=== PATIENT | male | born 1995 ===

== ENCOUNTER 2018-06-08 21:04 | Emergency (ER) | payer SELFPAY ==
--- NOTE | 2018-06-08 21:36 | C.PDOC ---
History Of Present Illness 22 year old male presents to the ED c/o dysuria and suprapubic pain for the past 2 days. Patient denies fever, chills, nausea, vomit, diarrhea, back pain, other complaints. Time Seen by Provider: 06/08/18 21:21 Chief Complaint (Nursing): Male Genitourinary History Per: Patient History/Exam Limitations: no limitations Onset/Duration Of Symptoms: Days (2) Current Symptoms Are (Timing): Still Present Quality Of Discomfort: "Pain" Associated Symptoms: Urinary Symptoms Recent travel outside of the [place]: No Additional History Per: Patient Past Medical History Reviewed: Historical Data, Nursing Documentation, Vital Signs Vital Signs: Last Vital Signs Temp 98.1 F 06/08/18 21:23 Pulse 95 H 06/08/18 21:23 Resp 18 06/08/18 21:23 BP 141/78 06/08/18 21:23 Pulse Ox 99 06/08/18 21:36 - Medical History PMH: No Chronic Diseases Surgical History: No Surg Hx Family History: States: Unknown Family Hx - Social History Hx Alcohol Use: Yes Hx Substance Use: No - Immunization History Hx Tetanus Toxoid Vaccination: No Hx Influenza Vaccination: No Hx Pneumococcal Vaccination: No Review Of Systems Except As Marked, All Systems Reviewed And Found Negative. Gastrointestinal: Positive for: Abdominal Pain Genitourinary: Positive for: Dysuria Physical Exam - Physical Exam Appears: Non-toxic, No Acute Distress Skin: Normal Color, Warm, Dry Head: Atraumatic, Normacephalic Eye(s): bilateral: Normal Inspection Oral Mucosa: Moist Neck: Normal ROM, Supple Chest: Symmetrical Cardiovascular: Rhythm Regular Respiratory: Normal Breath Sounds, No Rales, No Rhonchi, No Wheezing Gastrointestinal/Abdominal: Soft, Tenderness (suprapubic ), No Guarding, No Rebound Back: No CVA Tenderness Extremity: Normal ROM, No Tenderness, No Swelling Neurological/Psych: Oriented x3, Normal Speech Gait: Steady ED Course And Treatment O2 Sat by Pulse Oximetry: 99 (ON RA) Pulse Ox Interpretation: Normal Medical Decision Making Medical Decision Making: Plan: * Chlamydia test * Urine culture * UA * ua neg gc clymidia snet pt states recent tx for std, declines repeat treatment. on exam pt with persistent tenderness. refuses labs and imaging as his ride is leaving the er. Disposition - Disposition Referrals: [facility] [Outside] [facility] [Outside] Disposition: HOME/ ROUTINE Disposition Time: 21:00 Condition: STABLE Additional Instructions: you are declining additional lab tests and imaging. you should return to er with worsening symptos or concerns. Instructions: Acute Abdomen (Belly Pain), Dysuria, Adult (DC) Forms: [facility] (Sammarinese), Work Excuse Print Language: [place] - Clinical Impression Clinical Impression: Dysuria - Scribe Statement The provider has reviewed the documentation as recorded by the Scribe Ta Wright All medical record entries made by the Cheloibe were at my direction and personally dictated by me. I have reviewed the chart and agree that the record accurately reflects my personal performance of the history, physical exam, medical decision making, and the department course for this patient. I have also personally directed, reviewed, and agree with the discharge instructions and disposition.
[2018-06-08 21:56] VITALS: BP 141/78; PULSE 95; RESP 18; TEMP 98.1; O2SAT 99
[2018-06-08 22:15] LABS: URINE BILIRUBIN NEGATIVE (NEGATIVE); URINE BLOOD NEGATIVE (NEGATIVE); URINE CLARITY Clear (Clear); URINE COLOR Yellow (YELLOW); URINE GLUCOSE (UA) NORMAL (Normal); URINE LEUKOCYTE ESTERASE NEG Leu/uL (Negative); URINE PROTEIN NEGATIVE (NEGATIVE)
== END 2018-06-08 22:26 | disposition home or self-care (01) ==
LOC: C.ER 21:04
DX: R30.0 Dysuria (principal)